=== PATIENT | female | born 1985 | race Caucasian/White ===

== ENCOUNTER 2016-12-31 19:02 | Emergency (ER) | payer OTHER ==
[~2016-12-31] VITALS: Ht 165.1 cm; Wt 59.9 kg
[~2016-12-31 19:02] MED LIST: KEPPRA 500 MG500 M1 PO
[2016-12-31 19:07] VITALS: BP 134/91
[2016-12-31] MEDS ORDERED: KEPPRA 500 MG500 M1 PO (19:18)
== END 2016-12-31 20:46 | disposition home or self-care (01) ==
LOC: ER 19:02
DX: R56.9 Unspecified convulsions (principal); F10.99 Alcohol use, unspecified with unspecified alcohol-induced disorder; Z88.2 Allergy status to sulfonamides